=== PATIENT | male | born 1965 | race Caucasian/White ===

== ENCOUNTER 2017-10-08 09:45 | Emergency (ER) | payer OTHER ==
[~2017-10-08] VITALS: Ht 165.1 cm; Wt 90.0 kg
[~2017-10-08 09:45] MED LIST: ACCOLATE10 MG PO; AMLODIPINE10 MG PO; AMOXICILLIN/CL875 MG PO; AUGMENTIN875TAB PO; CINNAMON500 MG PO; CLARITIN10 M1 PO; EQ ASPIRIN81 M1 PO; FLEXERIL PO; GLIMEPIRIDE2 MG PO; HYDROCO/APAP1 T12 OR; LANTUS100 UNIT/M SC; METFORMIN HCL1000 MG PO; METFORMIN500 M1 PO; MULTI VITAMN OR; NAPROSYN500 MG PO; NIACIN100 M1 PO; ZESTRIL10 M1 PO; ZINC25 MG PO
[2017-10-08] MEDS ORDERED: METFORMIN500 MG PO (10:14)
[2017-10-08] MEDS ORDERED: ADLT ASA LOW81 MG PO (10:15)
[2017-10-08] MEDS ORDERED: MULTIVITAMI1 PO (10:15)
[2017-10-08] MEDS ORDERED: TRADJENTA5 MG PO (10:16)
[2017-10-08] MEDS ORDERED: NAPROSYN500 MG PO (10:46)
[2017-10-08 10:55] VITALS: BP 155/84
== END 2017-10-08 10:55 | disposition home or self-care (01) | DRG 566 ==
LOC: ED 09:45
DX: M25.461 Effusion, right knee (principal); E11.9 Type 2 diabetes mellitus without complications; I10 Essential (primary) hypertension

== ENCOUNTER 2017-10-10 14:24 | Observation (INO) | payer OTHER ==
[~2017-10-10] VITALS: Ht 165.1 cm; Wt 80.0 kg
[~2017-10-10 14:24] MED LIST changes: +ADLT ASA LOW81 MG PO; +METFORMIN500 MG PO; +MULTIVITAMI1 PO; +TRADJENTA5 MG PO
--- NOTE | 2017-10-10 14:29 | NUR ---
WHEELCHAIR TO ER ROOM 2, TO BED
--- NOTE | 2017-10-10 14:33 | NUR ---
INTRODUCED SELF TO PT. REPORTS BEING SEEN IN ER 3 DAYS AGO FOR RIGHT KNEE PAIN. NO FRACTURES SEEN AT TIME. C/O RIGHT KNEE PAIN,SWELLING, AND REDNESS. RATES PAIN 8/10 WHEN BEARING WEIGHT. RIGHT KNEE NOTED TO BE RED WITH SWELLING TO TO PATELLAR REGION AND TO DISTAL THIGH AREA. PLAN OF CARE DISCUSSED WITH PT. TAHIRA CARPENTER.
--- NOTE | 2017-10-10 15:00 | NUR ---
#20 IV STARTED IN LAC WITH LABS AND BLOOD CX SPECIMENS OBTAINED. TOLERATED WELL.
--- NOTE | 2017-10-10 15:05 | NUR ---
COMPOSITION ROOFER BEDSIDE TO OBTAIN SECOND SET OF BLOOD CULTURES.
--- NOTE | 2017-10-10 15:16 | NUR ---
IV VANCOMYCIN INITIATED TO LAC. INFUSING WITHOUT DIFFICULTY. NO REDNESS OR SWELLING NOTED TO AREA. PT PLACED ON PENCIL SORTER. BP 180/78 HR 110 R 18. PILLOW PLACED UNDER RIGHT KNEE. INFORMED OF WAIT TIME FOR RESULTS OF LAB AND XRAYS. VERBALIZED UNDERSTANDING. CALL LIGHT GIVEN.
--- NOTE | 2017-10-10 15:18 | NUR ---
DR DOLAN NOTIFIED OF BP 196/[address] ORDER FOR ANTIHYPERTENSIVE.
[2017-10-10 15:23] LABS: HEMATOCRIT 38.8 % (39.0-50.0); HEMOGLOBIN 13.3 g/dl (14.0-18.0); IMMATURE GRANULOCYTES 0.4 % (0.0-5.0); MEAN CELL VOLUME 83.4 fL CALC (80.0-100.0); MEAN CORPUSCULAR HGB 28.6 pG CALC (26.0-32.0); MEAN CORPUSCULAR HGB CONC 34.3 g/L CALC (32.0-36.0); NEUT# 13.2 thou/uL (1.82-7.42); RED BLOOD COUNT 4.65 mill/uL (4.70-6.10); RED CELL DISTRI WIDTH 12.4 % (11.5-15.5)
[2017-10-10 15:34] LABS: ALBUMIN 3.8 g/dL (3.2-5.0); ALKALINE PHOSPHATASE 137 u/l (38-126); ANION GAP 17 (6-22 (CALC)); BILIRUBIN, TOTAL 0.7 mg/dL (0.0-1.4); BUN 16 mg/dL (9-20); BUN/CREATININE RATIO 24 (12-20 (CALC)); CARBON DIOXIDE 24 mmol/l (22-30); CHLORIDE 101 mmol/l (95-108); CREATININE 0.7 mg/dL (0.7-1.3); GFR > 60 ML/MIN (>=60 (CALC)); GFR FOR AFR.AMER. > 60 ML/MIN (>=60 (CALC)); POTASSIUM 4.4 mmol/l (3.5-5.1); SGOT/AST 18 u/l (17-59); SGPT/ALT 45 u/l (21-72); SODIUM 137 mmol/l (137-146); TOTAL PROTEIN 6.7 g/dL (6.3-8.2)
--- NOTE | 2017-10-10 15:50 | NUR ---
PT MEDICATED WITH CLONIDINE 0.1 MG PO FOR BP OF 195/94 HR 109. TOLERATED MEDICATION WELL. TORADOL 30 MG IV ADMINISTERED FOR RIGHT KNEE PAIN-- 5/10 ON PAIN SCALE. MEDICATION TOLERATED WELL. EXPLAINED TO PT OF CONTINUED WAIT TIME FOR LAB RESULTS. VERBALIZED UNDERSTANDING. DENIES ANY NEEDS AT THIS TIME. CALL LIGHT WITHIN REACH.
--- NOTE | 2017-10-10 16:03 | NUR ---
CALL RECIEVED FROM STRUCTURAL WORKER OF ELEVATED LACTIC ACID OF 2.0, DR DOLAN NOTIFIED AND MADE AWARE.
--- NOTE | 2017-10-10 16:30 | NUR ---
PT RESTING ON STRETCHER IN NAD. RESP EVEN AND UNLABORED. SKIN WARM AND DRY. KNEE ELEVATED WITH PILLOW UNDERNEATH. BP NOTED TO BE 183/86 HR 102. IV VANCOMYCIN CONTINUES TO INFUSE TO LAC. SITE PATENT AND FREE FROM REDNESS/SWELLING. VERBALIZES NO NEEDS AT THIS TIME. CALL CENTRE SUPERVISOR IN PLACE. CALL LIGHT WITHIN REACH.
[2017-10-10 16:55] VITALS: BP 174/88
--- NOTE | 2017-10-10 17:11 | NUR ---
REPEAT ACCUCHECK OBTAINED---259. DR DOLAN NOTIFIED. NO NEW ORDERS RECEIVED.
--- NOTE | 2017-10-10 17:34 | NUR ---
PT RESTING ON STRETCHER IN NAD. RESP EVEN AND UNLABORED. NORMAL SALINE CONTINUES TO INFUSE TO LAC WITHOUT DIFFICULTY. SITE FREE FROM REDNESS/SWELLING/WARMTH. VERBALIZES NO NEEDS AT THIS TIME. LAVATORY ATTENDANT IN PLACE. CALL LIGHT WITHINR EACH.
--- NOTE | 2017-10-10 17:55 | NUR ---
ATTEMPTED TO CALL REPORT TO [facility], RECEIVING NURSE BUSY AT MOMENT WILL CALL BACK.
--- NOTE | 2017-10-10 18:01 | NUR ---
VALVE TESTER BEDSIDE FOR REPEAT LACTIC ACID.
--- NOTE | 2017-10-10 18:04 | NUR ---
MEAL TRAY PROVIDED TO PT.
--- NOTE | 2017-10-10 18:29 | NUR ---
PT RESTING ON STRETCHER CONTINUING TO CONSUME MEAL TRAY. VERBALIZES NO NEEDS AT THIS TIME. AWAIITING TRANSPORT TO [facility].
--- NOTE | 2017-10-10 18:45 | NUR ---
REPORT GIVEN TO TIGIST PHILIP.
--- NOTE | 2017-10-10 18:50 | NUR ---
Admission Note Report Given to: TIGIST PHILIP Transported by: X Wheelchair Stretcher Transported with: X Nurse Transporter X Patent IV O2 Track Worker PT TRANSPORTED TO ROOM # 262 VIA WC IN STABLE CONDITION.
--- NOTE | 2017-10-10 18:55 | NUR ---
PT TO ROOM 261 VIA WHEELCHAIR. ACCOMPANIED BY ER STAFF. PT TRANSFERRED TO BED WITH MINIMAL ASSISTANCE. PT ORIENTED TO ROOM AND UNIT. CALL LIGHT IN REACH. WILL CONTINUE TO MONITOR
--- NOTE | 2017-10-10 19:30 | NUR ---
DR COVINGTON NOTIFIED FOR ORDERS. ORDERS RECEIVED.
--- NOTE | 2017-10-10 20:15 | NUR ---
PT SITTING UP IN BED WATCHING TV. PT IS ALERT AND ORIENTED X3. ADMISSION ASSESSMENT COMPLETED AT THIS TIME. IV PATENT X1. PLAN OF CARE REVIEWED. CALL LIGHT IN REACH WILL CONTINUE TO MONITOR
[2017-10-10 23:18] LABS: URINE BILIRUBIN - DIPSTICK NEGATIVE (NEGATIVE); URINE BLOOD DIPSTICK NEGATIVE (NEGATIVE); URINE COLOR YELLOW; URINE GLUCOSE - DIPSTICK >=1000 mg/dL (NEGATIVE); URINE KETONE TRACE mg/dL (NEGATIVE); URINE LEUK ESTERASE NEGATIVE (Negative); URINE NITRITE - DIPSTICK NEGATIVE (Negative); URINE PROTEIN - DIPSTICK TRACE mg/dL (NEG-TRACE); URINE SPECIFIC GRAVITY 1.025; URINE UROBILINOGEN - DIPSTICK 0.2 E.U./dL (0.2)
[2017-10-10 23:20] LABS: URINE CLARITY CLEAR
--- NOTE | 2017-10-11 00:10 | NUR ---
PT RESTING IN BED. TEMP 101.9. MEDICATED WITH TYLENOL PE MAY. WILL CONTINUE TO MONITOR
--- NOTE | 2017-10-11 03:59 | NUR ---
PT RESTING IN BED WITH EYES CLOSED. RESP ARE EVEN AND UNLABORED. NO DISTRESS NOTED. CALL LIGHT IN REACH. WILL CONTINUE TO MONITOR
[2017-10-11 04:26] VITALS: BP 147/85
[2017-10-11 05:05] LABS: HEMATOCRIT 33.1 % (39.0-50.0); HEMOGLOBIN 11.3 g/dl (14.0-18.0); MEAN CELL VOLUME 84.9 fL CALC (80.0-100.0); MEAN CORPUSCULAR HGB CONC 34.1 g/L CALC (32.0-36.0); RED BLOOD COUNT 3.9 mill/uL (4.70-6.10); RED CELL DISTRI WIDTH 12.6 % (11.5-15.5)
[2017-10-11 05:13] LABS: ANION GAP 13 (6-22 (CALC)); BUN 15 mg/dL (9-20); BUN/CREATININE RATIO 23 (12-20 (CALC)); CARBON DIOXIDE 25 mmol/l (22-30); CHLORIDE 106 mmol/l (95-108); CREATININE 0.7 mg/dL (0.7-1.3); GFR > 60 ML/MIN (>=60 (CALC)); GFR FOR AFR.AMER. > 60 ML/MIN (>=60 (CALC)); POTASSIUM 4.4 mmol/l (3.5-5.1); SODIUM 139 mmol/l (137-146)
--- NOTE | 2017-10-11 07:41 | NUR ---
Vancomycin consult Age: 52 years Weight: 80 kg Height: 165.1 cm Gender: Male SCR: 0.7 mg/dl Dosing weight: 68.9 kg IBW: 61.50 kg CRCL (ml/min): 106.2 Neal (hr-1): 0.093 Half-life (hrs): 7.45 Vd (liters): 56.00 (factor: 0.7 L/kg) Vancomycin 1000 mg Q8H to produce a predicted peak of 31 mcg/ml and a predicted trough of 17 mcg/ml based on (Population-based pharmacokinetic analysis).
[2017-10-11 07:50] VITALS: BP 182/89
--- NOTE | 2017-10-11 07:50 | NUR ---
RECEIVED PT IN SEMI FOWLERS POSITION, ALERT, BREATH SOUNDS ARE CLEAR, BILATERALLY, NO C/O SOB, HR IS REG, PULSES ARE STRONG X4, R LEG IS WARM TO THE TOUCH IV SITE IS FREE FROM REDNESS OR EDMEA. CONTINUE TO OBSERVE AND MONITOR.
[2017-10-11 12:00] VITALS: BP 165/50
--- NOTE | 2017-10-11 12:00 | NUR ---
PT IS RELAXING IN BED WITH NO DISTRESS NOTED, IV SITE IS FREE FROM REDNESS OR EDEMA
[2017-10-11 16:34] VITALS: BP 184/90
[2017-10-11 19:10] VITALS: BP 156/85
--- NOTE | 2017-10-11 19:20 | NUR ---
PT RESTING IN BED. PT DENIES PAIN. RESP EVEN AND UNLABORED. IV PATENT; NO REDNESS OR EDEMA NOTED. SAFETY PRECAUTIONS REINFORCED. FREQUENT ROUNDS MADE. CALL LIGHT WITHIN REACH.
--- NOTE | 2017-10-11 21:04 | NUR ---
PT RESTING IN BED. PT ALERT AND ORIENTED. RESP EVEN AND UNLABORED. LUNGS CLEAR BILAT. ABD SOFT, ACTIVE BOWEL SOUNDS. RIGHT PATELLA REDNESS, PT DENIES PAIN. PEDAL PULSES PALPATED BILAT. IV PATENT; NO REDNESS OR EDEMA NOTED. CALL LIGHT WITHIN REACH.
[2017-10-12] VITALS (8 sets, daily range): BP systolic 147–184; BP diastolic 83–93
--- NOTE | 2017-10-12 | NUR ---
PT WOKE UPON ENTRY, PT DENIES PAIN. NO DISTRESS NOTED. IV PATENT; NO REDNESS OR EDEMA NOTED. CALL LIGHT WITHIN REACH.
--- NOTE | 2017-10-12 03:56 | NUR ---
PT WOKE UPON ENTRY, ASSESSMENT UNCHANGED. PT DENIES PAIN. RESP EVEN AND UNLABORED. CALL LIGHT WITHIN REACH.
[2017-10-12 06:05] LABS: HEMATOCRIT 31.9 % (39.0-50.0); IMMATURE GRANULOCYTES 1.1 % (0.0-5.0); MEAN CELL VOLUME 83.5 fL CALC (80.0-100.0); MEAN CORPUSCULAR HGB 28.8 pG CALC (26.0-32.0); MEAN CORPUSCULAR HGB CONC 34.5 g/L CALC (32.0-36.0); NEUT# 12.34 thou/uL (1.82-7.42); RED BLOOD COUNT 3.82 mill/uL (4.70-6.10); RED CELL DISTRI WIDTH 12.4 % (11.5-15.5)
--- NOTE | 2017-10-12 07:21 | NUR ---
Vancomycin consult Vancomycin single level analysis: Current dose being given: 1000 mg Current dosing interval: 8 hrs Current infusion time (hrs): 2 Single level Trough Data: Trough level obtained: 8 mcg/ml Timing of trough - Number of hours before next dose: 0.5 Hrs Desired peak: 30 mcg/ml Desired trough: 15 mcg/ml Estimated PK Parameters: New rate constant (vitor): 0.156 hr-1 New half-life: 4.44 Hours New Vd from levels: 56.00 Liters (0.7 L/kg) Vancomycin 1250 mg Q8H Infuse over 2 hrs Expected Cpeak: 27 mcg/ml Expected Ctrough: 11 mcg/ml
--- NOTE | 2017-10-12 07:38 | NUR ---
PT RESTING IN BED, NO SIGNS OF DISTRESS NOTED, RESP EVEN AND UNLABORED. PT ALERT AND ORIENTED X3, NOTED REDNESS AND EDEMA LOCALIZED TO R KNEE. PT VOICES NO C/O PAIN AT THIS TIME. PT EATING BREAKFAST, DISCUSSED AM MEDS AND INSULIN. PT IN AGREEMENT. BP ELEVATED MEDICATED WITH PO MEDS THEN WILL RECHECK. CALL LIGHT IN REACH,CONTINUE TO MONITOR.
--- NOTE | 2017-10-12 15:00 | NUR ---
MD ORDERED 1X DOSE OF METOPROLOL, PROVIDED TEACHING OF MEDICATION AND SIDE EFFECTS. PT IN AGREEMENT TO TAKE MEDS. CALL LIGHT IN REACH,CONTINUE TO MONITOR.
--- NOTE | 2017-10-12 18:23 | NUR ---
PT RESTING IN BED, NOTIFIED OF ELEVATED BP. STAT EKG ORDERED. ATTEMPTED TO PULL APRESOLINE FROM [facility] BUT NONE AVAILABLE. WADER BOOT TOP ASSEMBLER NOTIFIED, ONCALL PHARMACIST CALLED, STATES MED IS ON NATIONAL BACK ORDER. NOTIFIED FOR ALTERNATE ORDERS. PT MEDICATED FOR TEMP OF 100.5. CALL LIGHT IN REACH,CONTINUE TO MONITOR.
--- NOTE | 2017-10-12 19:34 | NUR ---
PT MEDICATED W/LABATALOL FOR BP ORDERED. ASSISTED PT TO RESTROOM AND BACK TO BED. REPOSITIONED. COVERS OFF FOR TEMP, WILL REAVALUATE FOR EFFECTIVENESS OF TYLENOL. LUNG SOUNDS ARE CLEAR, ABD FIRM/DIST NON-TENDER WITH ACTIVE BOWEL SOUNDS. RIGHT KNEE RED W/2+EDEMA/1+ EDEMA TO LOWER LEG/FOOT RIGHT SIDE. PT LOCX4 AND AMBULATORY W/1X STANDBY ASSIST. DENIES ANY OTHER NEEDS AT THIS TIME.
--- NOTE | 2017-10-12 21:06 | NUR ---
PT MEDICATED PM MEDICATIONS PROVIDE. BP 1444/80,HR92 PT RESPONDING TO MEDICATIONS ADMINISTERED. TEMP 99.3 IN RESPONSE TO TYLENOL GIVEN. PT REQUESTED/PROVIDED SOMETHING TO ASSIST IN SLEEPING, REPORTS HE HASN'T SLEPT IN THREE DAYS. LIGHTS TURNED OFF, URINAL AT BEDSIDE AND CALL LIGHT IN REACH. PT RECEIVING PHONE CALL I'M LEAVING THE ROOM. DENIES ANY OTHER ASSISTANCE.
[2017-10-13] VITALS (8 sets, daily range): BP systolic 148–191; BP diastolic 84–93
--- NOTE | 2017-10-13 00:01 | NUR ---
PT IV FLUIDS WERE SOUNDING, PT MEDICATED ORDERS PROVIDE. PT SPILLED HIS WATER ON HIMSELF/ASSISTED INTO [place] G[place]. TEMP RECHECKED @98.3. PT HAS SOME AUDIBLE WHEEZING AT THIS TIME, O2SAT WITH O2NC ON @2L IS 98%. PT REPORTS THAT HE HAS SOME WHEEZING SPELLS AT HOME SOMETIMES, DENIES TAKING ALBUTERAL. WILL CONTINUE TO MONITOR.
--- NOTE | 2017-10-13 04:18 | NUR ---
PT MEDICATED FOR ELEVATED BP OF 191/92,HR 102.
--- NOTE | 2017-10-13 06:07 | NUR ---
PT MEDICATED FOR BP 188/102,HR105.
--- NOTE | 2017-10-13 07:32 | NUR ---
PT RESTING IN BED, NO SIGNS OF DISTRESS NOTED, RESP EVEN AND UNLABORED. NO SIGNS OF DISTRESS NOTED. DISCUSSED POC, REDNESS TO R KNEE CONTINUES AND HOT TO TOUCH. 02 2L NC, LUNG SOUNDS WHEEZES, ASSESSMENT COMPLETED, CALL LIGHT IN REACH,CONTINUE TO MONITOR.
--- NOTE | 2017-10-13 09:43 | NUR ---
PT WEIGHED 199.1 USING SAME BED SCALE USED WHEN ADMITTED. ADMISSION WEIGHT 185.1. INFORMED MD, ORDERS FOR LABATALOL FOR BP OF 170/91 HR 92, LASIX 40 IV, AND PRN NEB TX. DISCUSSED PLAN AND MEDICATIONS WITH PT, PT VERBALIZED UNDERSTANDING. RT CALLED TO BEDSIDE FOR NEB TX. CALL LIGHT IN REACH, URINAL AT BEDSIDE, CONTINUE TO MONITOR.
--- NOTE | 2017-10-13 13:50 | NUR ---
PT BP 151/87, PT VOICES NO NEEDS OR COMPLAINTS AT THIS TIME. CALL LIGHT IN REACH,CONTINUE TO MONITOR.
[2017-10-13 14:08] LABS: HEMATOCRIT 32.2 % (39.0-50.0); HEMOGLOBIN 11.2 g/dl (14.0-18.0); IMMATURE GRANULOCYTES 0.9 % (0.0-5.0); MEAN CELL VOLUME 83.4 fL CALC (80.0-100.0); MEAN CORPUSCULAR HGB CONC 34.8 g/L CALC (32.0-36.0); NEUT# 13.2 thou/uL (1.82-7.42); RED BLOOD COUNT 3.86 mill/uL (4.70-6.10); RED CELL DISTRI WIDTH 12.8 % (11.5-15.5)
[2017-10-13 14:48] LABS: ANION GAP 16 (6-22 (CALC)); BUN 14 mg/dL (9-20); BUN/CREATININE RATIO 15 (12-20 (CALC)); CARBON DIOXIDE 27 mmol/l (22-30); CHLORIDE 99 mmol/l (95-108); CREATININE 0.9 mg/dL (0.7-1.3); GFR > 60 ML/MIN (>=60 (CALC)); GFR FOR AFR.AMER. > 60 ML/MIN (>=60 (CALC)); SODIUM 138 mmol/l (137-146)
--- NOTE | 2017-10-13 17:30 | NUR ---
SPOKE WITH BOB AT [facility] TRAN[facility], LILLIAM DICK ACCEPTING. WILL RETURN CALL WITH ROOM NUMBER. CONSENT FOR TRANSFER SIGNED, FAMILY AT BEDSIDE DISCUSSED PLANS FOR TRANSFER.
--- NOTE | 2017-10-13 18:45 | NUR ---
BOB FROM [facility] CALLED WITH ROOM # [id number]
--- NOTE | 2017-10-13 18:51 | NUR ---
SPOKE WITH GABY AT [facility] TRANSPORT ETA 1 1/2 HRS, ONCOMING SHIFT NOTIFIED.
--- NOTE | 2017-10-13 21:20 | NUR ---
PT LEFT VIA [facility]. PT WAS IN STABLE CONDITION UPON LEAVING FLOOR. VANCO COMPLETED JUST PRIOR TO LEAVING.
== END 2017-10-13 21:15 | disposition short-term general hospital (02) | DRG 603 ==
LOC: ED 14:24 → ED-I 15:54 → ED 17:15 → MS2 17:16
PROVIDERS: Emergency Medicine; General Practice; Internal Medicine; ADMIT Internal Medicine; ATTEND Internal Medicine
DX: L03.115 Cellulitis of right lower limb (principal); E11.65 Type 2 diabetes mellitus with hyperglycemia; I10 Essential (primary) hypertension; E66.01 Morbid (severe) obesity due to excess calories; R00.0 Tachycardia, unspecified; Z68.29 Body mass index [BMI] 29.0-29.9, adult
CPT/HCPCS: G0378; J0692; J3370

== ENCOUNTER 2020-01-23 18:22 | Emergency (ER) | payer OTHER ==
[~2020-01-23] VITALS: Ht 165.1 cm; Wt 84.1 kg
[2020-01-23 21:10] VITALS: BP 164/74
[2020-01-24] MEDS ORDERED: INSULIN 70/30 (08:25)
[2020-01-24] MEDS ORDERED: BYDUREON2 MG IM (08:26)
--- NOTE | 2020-01-26 09:32 | NUR ---
Notified patient of positive Covid results. Patient denies dyspnea or fever. Advised patient to quarantine until contacted by the [facility] with further instructions. Advised patient to return to the ED with any difficulty breathing or SOB. Patient verbalized understanding.
== END 2020-01-23 21:10 | disposition home or self-care (01) | DRG 179 ==
LOC: ED 18:22
DX: U07.1 COVID-19 (principal); R43.8 Other disturbances of smell and taste; E11.9 Type 2 diabetes mellitus without complications; I10 Essential (primary) hypertension; Z79.4 Long term (current) use of insulin

== ENCOUNTER 2020-11-15 02:44 | Inpatient (IN) | payer OTHER ==
[~2020-11-15] VITALS: Ht 165.1 cm; Wt 86.0 kg
[~2020-11-15 02:44] MED LIST changes: +BYDUREON2 MG IM; +INSULIN 70/30
--- NOTE | 2020-11-15 02:44 | NUR ---
BY EMS TO ROOM
--- NOTE | 2020-11-15 02:52 | NUR ---
EKG CONFIRMS A-FIB/RVR
--- NOTE | 2020-11-15 03:03 | NUR ---
CARDIZEM DRIP AND BOLUS STARTED
--- NOTE | 2020-11-15 04:00 | NUR ---
NO C/O. HR STARTING TO SLOW.
--- NOTE | 2020-11-15 05:00 | NUR ---
STOOD TO VOID WITHOUT PROBLEM.
[2020-11-15 06:24] LABS: IMMATURE GRANULOCYTES 0.2 % (0.0-5.0); MEAN CORPUSCULAR HGB 29.1 pG CALC (26.0-32.0); MEAN CORPUSCULAR HGB CONC 32.1 g/dL CAL (32.0-36.0); NEUT# 9.29 thou/uL (1.82-7.42); RED BLOOD COUNT 4.67 mill/uL (4.70-6.10); RED CELL DISTRI WIDTH 13.4 % (11.5-15.5)
[2020-11-15 06:26] LABS: ALBUMIN 4.2 g/dL (3.2-5.0); ALKALINE PHOSPHATASE 95 u/l (38-126); ANION GAP 14 (6-22 (CALC)); BILIRUBIN, TOTAL 0.3 mg/dL (0.0-1.4); BUN 14 mg/dL (9-20); BUN/CREATININE RATIO 17 (12-20 (CALC)); CARBON DIOXIDE 23 mmol/l (22-30); CHLORIDE 106 mmol/l (95-108); CREATININE 0.8 mg/dL (0.7-1.3); GFR > 60 ML/MIN (>=60 (CALC)); GFR FOR AFR.AMER. > 60 ML/MIN (>=60 (CALC)); MAGNESIUM 1.7 mg/dL (1.6-2.3); POTASSIUM 4.2 mmol/l (3.5-5.1); SGOT/AST 30 u/l (17-59); SODIUM 139 mmol/l (137-146); TOTAL PROTEIN 7.2 g/dL (6.3-8.2)
[2020-11-15 06:27] LABS: ACT PARTIAL THROMBO TIME 22.4 SECONDS (20.0-32.5); D-DIMER 0.47 mg/L (0.19-0.60); INTERNATIONAL NORMALIZED RATIO 0.9 RATIO (0.7-1.3); PROTHROMBIN TIME 9.9 SECONDS (9.0-12.5)
[2020-11-15 06:33] LABS: HEMATOCRIT 42.4 % (39.0-50.0); HEMOGLOBIN 13.6 g/dl (14.0-18.0); MEAN CELL VOLUME 90.8 fL CALC (80.0-100.0)
[2020-11-15 06:52] LABS: LIPASE 180 u/l (23-300)
[2020-11-15 08:00] VITALS: BP 132/74
--- NOTE | 2020-11-15 09:30 | NUR ---
Pt to side of bed and set up for breakfast. Urinal provided per pt request. No distress noted. Bed in lowest position. Call garner within reach. Denies any other needs at this time.
--- NOTE | 2020-11-15 09:45 | NUR ---
Dr Ag and CHASE Maldonado at bedside
--- NOTE | 2020-11-15 09:45 | NUR ---
CHASE GUTIERRES NOTIFIED OF CARDIZEM GTT COMPLETE AND INQUIRED IF MEDICATION TO BE CONTINUED. HE ADVISED HE WOULD EVALUATE PT AND ORDER IF NECESSARY. PTS PRIMARY NURSE NOTIFIED
--- NOTE | 2020-11-15 09:57 | NUR ---
PT TO RADIOLOGY VIA W/C IN STABLE CONDITION.
--- NOTE | 2020-11-15 10:15 | NUR ---
PT RETURNED TO ROOM # 6 FROM RADIOLOGY VIA W/C. NO DISTRESS NOTED.
--- NOTE | 2020-11-15 12:54 | NUR ---
Reassessment of patient completed. No distress noted.
[2020-11-15] MEDS ORDERED: ALLERGY RE50 MCG/ACT NAB (13:40)
[2020-11-15] MEDS ORDERED: TELMISARTAN80 MG PO (13:41)
[2020-11-15] MEDS ORDERED: HYDRALAZINE10 MG PO (13:41)
[2020-11-15] MEDS ORDERED: LIPITOR20 M1 PO (13:42)
[2020-11-15] MEDS ORDERED: NOVOLIN 70/30 F1 INJ SC ×2 (13:43)
--- NOTE | 2020-11-15 15:33 | NUR ---
Reassessment of patient completed. No distress noted.
--- NOTE | 2020-11-15 17:00 | NUR ---
Reassessment of patient completed. No distress noted.
--- NOTE | 2020-11-15 21:43 | NUR ---
Reassessment of patient completed. No distress noted.
--- NOTE | 2020-11-15 21:56 | NUR ---
Reassessment of patient completed. No distress noted. PLACED A ANOTHER BAG OF CARDIZEM DRIP
--- NOTE | 2020-11-15 22:25 | NUR ---
RESTING QUIETLY. NAD.
--- NOTE | 2020-11-15 22:42 | NUR ---
CARDIZEM GTT CONTINUES AT 15 NG/HR
--- NOTE | 2020-11-15 23:21 | NUR ---
PLACED IN HOSPITAL BED
[2020-11-16] VITALS (11 sets, daily range): BP systolic 114–155; BP diastolic 72–94
--- NOTE | 2020-11-16 02:39 | NUR ---
RESTING QUIETLY NO CHANGE NOTED.
[2020-11-16 04:29] LABS: HEMATOCRIT 38.8 % (39.0-50.0); HEMOGLOBIN 12.9 g/dl (14.0-18.0); IMMATURE GRANULOCYTES 0.2 % (0.0-5.0); MEAN CORPUSCULAR HGB 29.6 pG CALC (26.0-32.0); MEAN CORPUSCULAR HGB CONC 33.2 g/dL CAL (32.0-36.0); NEUT# 6.06 thou/uL (1.82-7.42); RED BLOOD COUNT 4.36 mill/uL (4.70-6.10); RED CELL DISTRI WIDTH 13.2 % (11.5-15.5)
[2020-11-16 04:42] LABS: ALBUMIN 3.4 g/dL (3.2-5.0); ALKALINE PHOSPHATASE 87 u/l (38-126); ANION GAP 11 (6-22 (CALC)); BUN 12 mg/dL (9-20); BUN/CREATININE RATIO 18 (12-20 (CALC)); CARBON DIOXIDE 25 mmol/l (22-30); CHLORIDE 106 mmol/l (95-108); CREATININE 0.7 mg/dL (0.7-1.3); GFR > 60 ML/MIN (>=60 (CALC)); GFR FOR AFR.AMER. > 60 ML/MIN (>=60 (CALC)); POTASSIUM 4.2 mmol/l (3.5-5.1); SGOT/AST 21 u/l (17-59); SODIUM 137 mmol/l (137-146); TOTAL PROTEIN 5.9 g/dL (6.3-8.2)
[2020-11-16 04:43] LABS: BILIRUBIN, TOTAL 0.6 mg/dL (0.0-1.4)
--- NOTE | 2020-11-16 05:21 | NUR ---
NO SIGNIFICANT CHANGES.
--- NOTE | 2020-11-16 05:34 | NUR ---
UOP 700 CC CLEAR YELLOW
--- NOTE | 2020-11-16 06:21 | NUR ---
RESTING QUIETLY. NAD.
--- NOTE | 2020-11-16 07:18 | NUR ---
RECEIVED BEDSIDE REPORT FROM ANDREA ESCOTO.
--- NOTE | 2020-11-16 10:22 | NUR ---
DR ROPER AT BEDSIDE TO DISCUSS RESULTS AND POC.
--- NOTE | 2020-11-16 10:30 | NUR ---
CARDIZIEM GTT STOPPED AT THIS TIME PER MD ORDER.
--- NOTE | 2020-11-16 18:19 | NUR ---
IN HIGH FOWLERS EATING MEAL. DENIES NEEDS AT THIS TIME. CALL LIGHT WITHIN REACH. IV INFUSING WITHOUT DIFFICULTY, SITE APPEARS HEALTHY.
--- NOTE | 2020-11-16 20:19 | NUR ---
Reassessment of patient completed. No distress noted.
--- NOTE | 2020-11-16 21:32 | NUR ---
PT BEING MOVED FROM ROOM 6 TO ROOM 8 FOR ER ICU HOLD. PT DID NOT GET MUCH REST LAST NIGHT DO TO ROOM LOCATION.
--- NOTE | 2020-11-16 22:23 | NUR ---
RECIEVED REPORT FROM TIGIST MARKS. ASSUMED CARE OF PATIENT. HOB ELEVATED TO 30 DEGREES FOR COMFORT. CALL LIGHT WITHIN REACH, PT INSTRUCTED TO CALL FOR ASSIST NEEDED.
--- NOTE | 2020-11-16 23:25 | NUR ---
Reassessment of patient completed. No distress noted. BLOOD PRESSURE CHECK. PT CURRENTLY IN A. FIB.
--- NOTE | 2020-11-17 00:39 | NUR ---
Reassessment of patient completed. No distress noted.
--- NOTE | 2020-11-17 01:00 | NUR ---
Reassessment of patient completed. No distress noted. IV LINE UNTANGLED. PT RESTING QUIETLY.
--- NOTE | 2020-11-17 01:15 | NUR ---
PT RESTING. REPORT RECEIVED. PT RESTING IN ROOM 8. LIGHTS DIMMED. WATCHING T.V. IV PATENT. CM A-FIB...RATE 97
--- NOTE | 2020-11-17 03:00 | NUR ---
PT RESTING. NAD. VSS.
--- NOTE | 2020-11-17 04:30 | NUR ---
PT RESTING. NAD.
--- NOTE | 2020-11-17 06:00 | NUR ---
PT RESTING. LOVONOX SHOT GIVEN.
[2020-11-17 07:00] VITALS: BP 179/101
--- NOTE | 2020-11-17 07:00 | NUR ---
RECEIVED BEDSIDE REPORT FROM CELESTE ESCOTO. PT RESTING IN BED TALKING ON PHONE. PO FLUIDS OFFERED. DENIES C/O AT THIS TIME. CALL LIGHT WITHIN REACH.
--- NOTE | 2020-11-17 07:00 | NUR ---
REPORT TO ADRIANNE MIRANDA. NAD.
[2020-11-17 08:12] VITALS: BP 169/89
--- NOTE | 2020-11-17 08:54 | NUR ---
LAB AT BEDSIDE FOR AM LABS
[2020-11-17 09:43] LABS: HEMATOCRIT 41.2 % (39.0-50.0); HEMOGLOBIN 13.7 g/dl (14.0-18.0); IMMATURE GRANULOCYTES 0.2 % (0.0-5.0); MEAN CELL VOLUME 88.2 fL CALC (80.0-100.0); MEAN CORPUSCULAR HGB 29.3 pG CALC (26.0-32.0); MEAN CORPUSCULAR HGB CONC 33.3 g/dL CAL (32.0-36.0); NEUT# 4.15 thou/uL (1.82-7.42); RED BLOOD COUNT 4.67 mill/uL (4.70-6.10); RED CELL DISTRI WIDTH 13.2 % (11.5-15.5)
[2020-11-17 09:55] LABS: ALBUMIN 3.7 g/dL (3.2-5.0); ALKALINE PHOSPHATASE 97 u/l (38-126); ANION GAP 11 (6-22 (CALC)); BILIRUBIN, TOTAL 0.5 mg/dL (0.0-1.4); BUN 13 mg/dL (9-20); BUN/CREATININE RATIO 18 (12-20 (CALC)); CARBON DIOXIDE 24 mmol/l (22-30); CHLORIDE 105 mmol/l (95-108); CREATININE 0.8 mg/dL (0.7-1.3); GFR > 60 ML/MIN (>=60 (CALC)); GFR FOR AFR.AMER. > 60 ML/MIN (>=60 (CALC)); POTASSIUM 4.2 mmol/l (3.5-5.1); SGOT/AST 24 u/l (17-59); SODIUM 136 mmol/l (137-146); TOTAL PROTEIN 6.3 g/dL (6.3-8.2)
--- NOTE | 2020-11-17 10:15 | NUR ---
REPORT GIVEN TO GENARO ESCOTO
--- NOTE | 2020-11-17 10:30 | NUR ---
DR ROPER AT BEDSIDE TO DISCUSS RESULTS AND POC.
--- NOTE | 2020-11-17 22:38 | NUR ---
Admission Note Report Given to: TIGIST HOOD Transported by: Wheelchair X Stretcher Transported with: X Nurse Transporter X Patent IV O2 X Environmental Services Coordinator Location: ICU X MS[facility]
[2020-11-18] VITALS (16 sets, daily range): BP systolic 117–174; BP diastolic 77–107
--- NOTE | 2020-11-18 00:25 | NUR ---
CALL SHANON FROM ER, PATIENT IN A FIB SUSTAINING 130'S, STAT EKG ORDERED, PATIENT ASYMPTOMATIC.
--- NOTE | 2020-11-18 02:39 | NUR ---
ORDERS RECIEVED AND GIVEN, NO CHANGE IN HR.
[2020-11-18 05:32] LABS: HEMATOCRIT 41.9 % (39.0-50.0); HEMOGLOBIN 13.6 g/dl (14.0-18.0); MEAN CELL VOLUME 89.7 fL CALC (80.0-100.0); MEAN CORPUSCULAR HGB 29.1 pG CALC (26.0-32.0); MEAN CORPUSCULAR HGB CONC 32.5 g/dL CAL (32.0-36.0); RED BLOOD COUNT 4.67 mill/uL (4.70-6.10); RED CELL DISTRI WIDTH 13.1 % (11.5-15.5)
--- NOTE | 2020-11-18 05:48 | NUR ---
ORDERS RECEIVED, ADMINISTERED. PATIENT STILL SUSTAINING HR, NEW ORDERS RECIEVED.
[2020-11-18 05:51] LABS: ANION GAP 11 (6-22 (CALC)); BUN 16 mg/dL (9-20); BUN/CREATININE RATIO 19 (12-20 (CALC)); CARBON DIOXIDE 26 mmol/l (22-30); CHLORIDE 106 mmol/l (95-108); CREATININE 0.8 mg/dL (0.7-1.3); GFR > 60 ML/MIN (>=60 (CALC)); GFR FOR AFR.AMER. > 60 ML/MIN (>=60 (CALC)); POTASSIUM 4.6 mmol/l (3.5-5.1); SODIUM 139 mmol/l (137-146)
--- NOTE | 2020-11-18 08:00 | NUR ---
BEDSIDE REPORT RECEIVED. PT SITTING UP IN BED EATING BREAKFAST AT THIS TIME. ASSESSMENT COMPLETED. PT EXPECTED TO BE TRANSFERRED, D/T HEART RHYTHM AND NEED FOR ADVANCED CARE. PT IS ASYMPTOMATOIC AND STATES HE FEELS FINE. SN EXPLAINED NEED FOR TRANSFER, PT AGREED. WILL CONTINUE TO MONITOR.
--- NOTE | 2020-11-18 09:50 | NUR ---
PT TAKEN TO ER PER JESU ESCOTO VIA WC. REPORT GIVEN TO CEDRICK IN ER.
--- NOTE | 2020-11-18 10:00 | NUR ---
PATIENT RECEIVED TO ER 15. BEDSIDE REPORT RECIVED FROM Torri BLEVINS RN. CARE ASSUMED AT THIS TIME. PATIENT IN AFIB WITH RVR RATE 120-160. PATINET IS ALERT AND ORIENTED X3. ORIENTED PATIENT TO ROOM AND UNIT. CALL LIGHT IN REACH WILL CONTINUE TO MONITOR.
--- NOTE | 2020-11-18 10:30 | NUR ---
DR ROPER AND STEPH GUTIERRES APRN AT BEDSIDE NEW ORDERS RECEIVED AT THIS TIME
--- NOTE | 2020-11-18 12:30 | NUR ---
PATEINT SET UP FOR NOON MEAL AT THIS TIME.
--- NOTE | 2020-11-18 12:50 | NUR ---
DR ROPER PHONED WITH [facility] FOR ELEVATED HEART RATE
--- NOTE | 2020-11-18 13:42 | NUR ---
DR ROPER AT BEDSIDE AT THIS TIME.
--- NOTE | 2020-11-18 16:00 | NUR ---
PATIENT RESTING IN BED. REMAINS AFIB ON MONITOR. NO DISTRESS NOTED. CALL LIGHT IN REACH. WILL CONTINUE TO MONITOR.
--- NOTE | 2020-11-18 17:01 | NUR ---
KRISTIN STATES THAT HE IS DIABETIC AND IS CONCENRED THAT HE HAS NOT BEEN RECEIVEING HOME MEDS. DR ROPER NOTIFIED. NEW ORDERS RECEIVED
[2020-11-19] VITALS (14 sets, daily range): BP systolic 123–173; BP diastolic 73–103
--- NOTE | 2020-11-19 02:05 | NUR ---
Reassessment of patient completed. No distress noted.
[2020-11-19 05:58] LABS: ANION GAP 11 (6-22 (CALC)); BUN 14 mg/dL (9-20); BUN/CREATININE RATIO 19 (12-20 (CALC)); CARBON DIOXIDE 30 mmol/l (22-30); CHLORIDE 102 mmol/l (95-108); CREATININE 0.7 mg/dL (0.7-1.3); GFR > 60 ML/MIN (>=60 (CALC)); GFR FOR AFR.AMER. > 60 ML/MIN (>=60 (CALC)); SODIUM 138 mmol/l (137-146)
[2020-11-19 05:59] LABS: HEMATOCRIT 42.2 % (39.0-50.0); HEMOGLOBIN 13.8 g/dl (14.0-18.0); MEAN CELL VOLUME 89.6 fL CALC (80.0-100.0); MEAN CORPUSCULAR HGB 29.3 pG CALC (26.0-32.0); MEAN CORPUSCULAR HGB CONC 32.7 g/dL CAL (32.0-36.0); RED BLOOD COUNT 4.71 mill/uL (4.70-6.10); RED CELL DISTRI WIDTH 13.1 % (11.5-15.5)
--- NOTE | 2020-11-19 07:12 | NUR ---
AFIB RVR NOTED WITH HR UP TO 150. CARDIZEM DRIP PER PRN ORDER STARTED.
--- NOTE | 2020-11-19 12:59 | NUR ---
AMIODARONE DISCONTINUED AT THIS TIME
--- NOTE | 2020-11-19 19:03 | NUR ---
REPORT TO MALCOLM ESCOTO
--- NOTE | 2020-11-19 19:15 | NUR ---
PT OOB TO CHAIR. NO DISTRESS. REMAINS IN ER 15. MONITORING VS CLOSELY. CARDIZEM DRIP REMAINS AT 5MG.
--- NOTE | 2020-11-19 23:05 | NUR ---
PT TOLERATED INCREASED LOPRESSOR DOSE WELL. HR HAS REMAINED LESS THAN 100 BPM WITH CARDIZEM DRIP IN USE. CARDIZEM WEANED TO 2.5MG/H AT 2200 HR WAS 70 -100 BPM. CARDIZEM STOPPED HR REMAINS 80 TO 100 BPM. WILL MONITOR CLOSELY.
[2020-11-20] VITALS (20 sets, daily range): BP systolic 105–170; BP diastolic 70–100
[2020-11-20 05:36] LABS: URINE BILIRUBIN - DIPSTICK NEGATIVE (NEGATIVE); URINE BLOOD DIPSTICK NEGATIVE (NEGATIVE); URINE COLOR YELLOW; URINE GLUCOSE - DIPSTICK NEGATIVE (NEGATIVE); URINE KETONE NEGATIVE (NEGATIVE); URINE LEUK ESTERASE NEGATIVE (NEGATIVE); URINE PROTEIN - DIPSTICK NEGATIVE (NEG-TRACE); URINE UROBILINOGEN - DIPSTICK 0.2 E.U./dL (0.2)
[2020-11-20 05:37] LABS: URINE NITRITE - DIPSTICK NEGATIVE (Negative)
[2020-11-20 05:49] LABS: ANION GAP 11 (6-22 (CALC)); BUN 20 mg/dL (9-20); BUN/CREATININE RATIO 23 (12-20 (CALC)); CARBON DIOXIDE 25 mmol/l (22-30); CHLORIDE 104 mmol/l (95-108); CREATININE 0.9 mg/dL (0.7-1.3); GFR > 60 ML/MIN (>=60 (CALC)); GFR FOR AFR.AMER. > 60 ML/MIN (>=60 (CALC)); HEMATOCRIT 38.5 % (39.0-50.0); HEMOGLOBIN 13.1 g/dl (14.0-18.0); MAGNESIUM 1.9 mg/dL (1.6-2.3); MEAN CELL VOLUME 87.1 fL CALC (80.0-100.0); MEAN CORPUSCULAR HGB 29.6 pG CALC (26.0-32.0); NEUT# 4.1 thou/uL (1.82-7.42); POTASSIUM 4.1 mmol/l (3.5-5.1); RED BLOOD COUNT 4.42 mill/uL (4.70-6.10); RED CELL DISTRI WIDTH 12.9 % (11.5-15.5); SODIUM 136 mmol/l (137-146)
--- NOTE | 2020-11-20 05:51 | NUR ---
HR HAS GRADUALLY INCREASED WITH HR UP TO 140 WITH MOVEMENT. HR NOT SUSTAINED AT RAPID RATE. HR REMAINS 90 TO 120 AT REST. WILL CONTINUE TO MONITOR AND RESUME PRN CARDIZEM IF HR BECOMES SUSTAINED AT RAPID RATE. PT DENIES PALPITATIONS OR DIZZINESS. BREATH SOUNDS REMAINS CLEAR. PERRLA 5MM. NO DISTRESS NOTED.
--- NOTE | 2020-11-20 06:33 | NUR ---
CARDIZEM RESUMED AT 10MG/HR. HR HAS GRADUALLY INCREASED THROUGHOUT SHIFT. HR HAS INCREASED UP TO 160 BPM. MAINLY 110 -135 FOR PAST 30 MIN. PT ASYMPTOMATIC. WILL CONTINUE TO MONITOR.
--- NOTE | 2020-11-20 07:00 | NUR ---
PATIENT REPORT FROM TIGIST FOWLER. PATIENT RESTING IN STRETCHER IN NAD. HE C/O FEELING DEPRESSED HE HAS BEEN HERE FOR 6 DAYS AND FEELING STUCK IN THIS ROOM. PATIENT DENIES ANY THOUGHTS OF SUICIDE OR HURTING HIMSELF. MONITOR SHOWING AFIB AT A RATE OF 110-125. CARDIAZEM INFUSING AT A RATE OF 10 MG/HR TO THE LEFT AC. HE DENIES ANY PAIN OR SOB. PATIENT UP TO BEDSIDE CHAIR AND AWAITING MEAL TRAY.
--- NOTE | 2020-11-20 08:00 | NUR ---
PATIENT IN BEDSIDE CHAIR AT THIS TIME. HE DENIES ANY NEEDS. CALL BORJAS WITHIN REACH.
--- NOTE | 2020-11-20 09:00 | NUR ---
DR العلي AT BEDSIDE. HE WILL BE MAKING CHANGES TO PO METOPROLOL.
--- NOTE | 2020-11-20 09:58 | NUR ---
PATIENT CARDIAZEM DRIP DECREASED TO 5MG/HR. HEART RATE 90-110.
--- NOTE | 2020-11-20 11:00 | NUR ---
PATIENT RESTING IN STRETCHER IN NAD AND DENIES ANY NEEDS. CALL BORJAS WITHIN REACH.
--- NOTE | 2020-11-20 12:00 | NUR ---
PATIENT RESTING IN STRETCHER IN NAD AND DENIES ANY NEEDS. CARDIZEM DRIP DECREASED TO 2.5 MLS PER HOUR. HEART RATE 80-105 AFIB.
--- NOTE | 2020-11-20 14:00 | NUR ---
PATIENT UP TO BATHROOM WITH A STEADY GAIT. DENIES ANY DIZZINESS OR PAIN.
--- NOTE | 2020-11-20 15:45 | NUR ---
CARDIZEM DRIP STOPPED AT THIS TIME. PATIENT HEART RATE SUSTAINING 80-100.
--- NOTE | 2020-11-20 17:45 | NUR ---
PATIENT HEART RATE TRENDING BACK UP 100-120'S AFIB.
--- NOTE | 2020-11-20 18:55 | NUR ---
REPORT TO TIGIST CRAWFORD.
--- NOTE | 2020-11-20 19:16 | NUR ---
RECIEVED REPORT FROM RUPESH ESCOTO. ASSUMED CARE OF PT.
--- NOTE | 2020-11-20 22:24 | NUR ---
Reassessment of patient completed. No distress noted. LIGHTS OFF, PT APPEARS TO BE RESTING, RESPIRATIONS EVEN, UNLABORED. NO NEEDS AT THIS TIME.
--- NOTE | 2020-11-21 00:50 | NUR ---
Reassessment of patient completed. No distress noted. Pt leads were misplaced. Rearranged and replaced. Pulse ox placed on left earlobe.
--- NOTE | 2020-11-21 05:19 | NUR ---
Reassessment of patient completed. No distress noted. RESPIRATIONS EVEN, UNLABORED, PT WAKES EASILY FOR BP CHECK.
--- NOTE | 2020-11-21 06:04 | NUR ---
Reassessment of patient completed. No distress noted. LAB HERE FOR LAB DRAW.
[2020-11-21 06:19] LABS: HEMATOCRIT 39.3 % (39.0-50.0); HEMOGLOBIN 13.3 g/dl (14.0-18.0); IMMATURE GRANULOCYTES 0.3 % (0.0-5.0); MEAN CELL VOLUME 87.9 fL CALC (80.0-100.0); MEAN CORPUSCULAR HGB 29.8 pG CALC (26.0-32.0); MEAN CORPUSCULAR HGB CONC 33.8 g/dL CAL (32.0-36.0); NEUT# 4.15 thou/uL (1.82-7.42); RED BLOOD COUNT 4.47 mill/uL (4.70-6.10); RED CELL DISTRI WIDTH 13.2 % (11.5-15.5)
[2020-11-21 06:49] LABS: ANION GAP 12 (6-22 (CALC)); BUN 16 mg/dL (9-20); BUN/CREATININE RATIO 23 (12-20 (CALC)); CARBON DIOXIDE 24 mmol/l (22-30); CHLORIDE 104 mmol/l (95-108); CREATININE 0.7 mg/dL (0.7-1.3); GFR > 60 ML/MIN (>=60 (CALC)); GFR FOR AFR.AMER. > 60 ML/MIN (>=60 (CALC)); MAGNESIUM 1.8 mg/dL (1.6-2.3); POTASSIUM 4.1 mmol/l (3.5-5.1); SODIUM 136 mmol/l (137-146)
--- NOTE | 2020-11-21 06:58 | NUR ---
REPORT RECEIVED FROM TIGIST LARA
--- NOTE | 2020-11-21 08:30 | NUR ---
PT UP TO BEDSIDE CHAIR FOR BREAKFAST, VITALS STABLE ON MONITOR. BREAKFAST PROVIDED. NO COMPLAINTS OR CONCERNS VOICED AT THIS TIME. PT REPORTS NEED FOR BOWEL MOVEMENT. STEADY GAIT TO BATHROOM. CALL LIGHT WITHIN REACH AND PERSONAL ITEMS REMAIN WITHIN REACH AT BEDSIDE.
[2020-11-21 09:00] VITALS: BP 146/97
[2020-11-21 11:15] LABS: TSH, 3RD GENERATION 3.97 uIU/mL (0.47 - 4.68)
--- NOTE | 2020-11-21 11:15 | NUR ---
PT RESTING, ACCUCHECK COMPLETED, INSLUIN GIVEN, NO OTHER CHANGES.
--- NOTE | 2020-11-21 11:35 | NUR ---
DR RAHMAN AT BEDSIDE TO EXAMINE PT
[2020-11-21 13:15] VITALS: BP 141/84
--- NOTE | 2020-11-21 13:16 | NUR ---
PT RESTING IN BED. NO CHANGES. VITALS UPDATED.
--- NOTE | 2020-11-21 14:58 | NUR ---
HEALTH INSPECTOR AT BEDSIDE DISCUSSING PLAN OF CARE. MEDICATED ORDERED. NO CONCERNS VOICED AT THIS TIME. WILL CONTINUE TO MONITOR.
--- NOTE | 2020-11-21 17:00 | NUR ---
URINAL EMPTIED 1000CC, NO CONCERNS VOICED. VITALS REMAIN STABLE. BED IN LOW POSITION. PERSONAL ITEMS WITHIN REACH.
--- NOTE | 2020-11-21 21:43 | NUR ---
PT IS W/P/D A FIB RATE VARIABLE 100-128,NO CP NO SOB PT SITS UP ON SIDE OF BED TO VOID 400CC YELLOW URINE.PO MEDS WITH WATER
--- NOTE | 2020-11-22 00:50 | NUR ---
W/P/D SKIN A FIB RHYTHM.PT IS ASLEEP AND IN NO APPARENT DISCOMFORT
--- NOTE | 2020-11-22 04:33 | NUR ---
W/P;D SKIN A/O X3 PT HAS VOIDED 300CC YELLOW URINE DENIES PAIN OR DIFF BREATHING.AFIB RHYTHM
[2020-11-22 04:54] LABS: HEMOGLOBIN 13.4 g/dl (14.0-18.0); MEAN CELL VOLUME 87.7 fL CALC (80.0-100.0); MEAN CORPUSCULAR HGB 29.4 pG CALC (26.0-32.0); MEAN CORPUSCULAR HGB CONC 33.5 g/dL CAL (32.0-36.0); RED BLOOD COUNT 4.56 mill/uL (4.70-6.10); RED CELL DISTRI WIDTH 13.2 % (11.5-15.5)
[2020-11-22 05:11] LABS: ANION GAP 12 (6-22 (CALC)); BUN 22 mg/dL (9-20); BUN/CREATININE RATIO 24 (12-20 (CALC)); CARBON DIOXIDE 25 mmol/l (22-30); CHLORIDE 104 mmol/l (95-108); CREATININE 0.9 mg/dL (0.7-1.3); GFR > 60 ML/MIN (>=60 (CALC)); GFR FOR AFR.AMER. > 60 ML/MIN (>=60 (CALC)); MAGNESIUM 1.9 mg/dL (1.6-2.3); POTASSIUM 4.2 mmol/l (3.5-5.1); SODIUM 137 mmol/l (137-146)
--- NOTE | 2020-11-22 08:16 | NUR ---
PT EATING BREAKFAST IN CHAIR, NO COMPLAINTS, ASSESSMENT COMPLETED. CONTINUOUS CARDIAC MONITORING IN PROGRESS. AFIB ON MONITOR, NO COMPLAINTS AT THIS TIME
[2020-11-22 11:32] VITALS: BP 137/90
[2020-11-22] MEDS ORDERED: XARELTO10 MG PO (12:44)
[2020-11-22] MEDS ORDERED: LOPRESSOR 550 MG/TAB PO (12:48)
[2020-11-22] MEDS ORDERED: AMIODARONE200 MG PO (12:48)
--- NOTE | 2020-11-22 15:40 | NUR ---
Discharged to: Home Discharged via: Wheelchair Accompanied by: family D/C Condition: stable Diet: 2 gm sodium Diet modification: Activity: As tolerated Home Health: NONE Follow up appointment: Special instructions: Medications: SEE MEDICATION RECONCILIATION FORM Prescriptions Given: Please notify your physician if you received either one of these vaccinations: Influenza Vaccine - Date: Pneumococcal Vaccine - Date: Patient Education Materials Provided: - Food and Drug Interaction Guide - Anticoagulation Education Booklet Contains the following information: 1. Compliance issues 2. Dietary advice 3. Follow up monitoring 4. Potential for adverse drug reactions and interactions - Smoking Cessation Booklet IF SYMPTOMS WORSEN, OR IF YOU HAVE ADDITIONAL QUESTIONS, PLEASE CONTACT YOUR PERSONAL PHYSICIAN OR SEEK EMERGENCY CARE. CALL YOUR PHYSICIAN IF YOU DO NOT GET RELIEF FROM THE PAIN MEDICATIONS PRESCRIBED, OR IF THE INTENSITY OF PAIN INCREASES, OR IF PAIN IS INTERFERING WITH ACTIVITY OR REST. IF YOU SMOKE, YOU NEED TO QUIT. IT IS GOOD FOR YOU AND EVERYONE AROUND YOU! Your physician and [facility] care about you and your health. The facts are clear. Smoking causes 1 out of 5 deaths in the [place] each year. It is the major preventable cause of emphysema, lung cancer, chronic bronchitis, heart disease and stroke. Quitting is one of the best things you can ever do for yourself and those you love. What better time to quit than now! You've already been cigarette free during your stay. Studies have shown that the first 48 hours of quitting are the toughest. Just a few of the benefits your body begins to experience are blood pressure returns to normal, the carbon monoxide level in your blood drops to normal, your chance of heart attack decreases, and your ability to smell and taste is enhanced. Here are some resources that you may find helpful: [employer] www.lungusa.org www.cancer.org [employer] [place] [employer] (Tobacco Prevention and Control Program) www.americanheart.org www.annette.[facility].fl.us Finally don't forget that your doctor may be able to help you. Whichever method you choose will be good for you. IF YOU HAVE A DIAGNOSIS OF CONGESTIVE HEART FAILURE, THERE ARE SEVERAL ADDITIONAL INSTRUCTIONS FOR YOU TO FOLLOW UPON DISCHARGE FROM THE HOSPITAL. Weigh yourself every day and if weight gain is greater than 2 pounds in a day, call your physican. If you experience worsening symptoms such as: Problems with breathing or shortness of breath Ankle/foot/leg swelling Unexplained weight gain greater than 2 pounds Call your physician or come to the emergency room. IF YOU HAVE A DIAGNOSIS OF STROKE, THERE ARE SEVERAL ADDITIONAL INSTRUCTIONS FOR YOU TO FOLLOW: A stroke occurs when something happens to interrupt the steady flow of blood to the brain, like a clot or a burst in a blood vessel. Brain cells quickly begin to . These INCREASE your chance of having a STROKE: * Smoking * High blood pressure * Diabetes * Obesity WARNING SIGNS OR SYMPTOMS: * Sudden weakness on one side of body. * Sudden confusion, trouble speaking or understanding. * Sudden trouble seeing. * Sudden trouble walking or loss of balance. * Sudden severe headache with no known cause. CALL At Any Sign of Stroke. You can beat a stroke. Disabilities can be prevented or limited, but you have must go to the Emergency Department immediately. Go in an Ambulance. Save Time. Be Seen Faster! If you were admitted to the hospital for a stroke After DISCHARGE you must: * Keep ALL follow up appointments. * Take your medications as ordered by your doctor. * Do not take any other drugs without checking with your doctor first. * Do not drive unless your doctor says it is okay. * Call your doctor with any questions or concerns. IF YOU WERE DISCHARGED ON COUMADIN/WARFARIN ANTICOAGULATION THERAPY, THERE ARE SEVERAL ADDITIONAL INSTRUCTIONS FOR YOU TO FOLLOW: Anticoagulants are medications that help prevent blood clots. They are often prescribed for people with certain heart, lung and blood vessel diseases to help prevent heart attacks and strokes. IMPORTANT Anticoagulation medications have been used for many years, but it can be difficult to manage. That's because many factors can affect how they work-including small changes in dose or dose timing, what you eat or drink, other medications and stress. You and your doctor must work closely together to manage this important medication. * Take your medicine EXACTLY as instructed by your doctor. * You must have your blood drawn for PT/INR to monitor your medication. * Do not take any new medications, vitamins or herbal supplements without asking your doctor first. FOODS: * Eat the same amount of foods that contain Vitamin K every day. * Avoid or limit alcohol. * Avoid major changes in diet or notify your doctor first. FOLLOW UP MONITORING: See your physician within one week to monitor your condition. You will need to have blood tests performed to monitor the medication. DRUG INTERACTIONS: * Diet and medications can affect the PT/INR level. * Do not take or discontinue any medication or over the counter medication unless your doctor okays. * Warfarin/Coumadin increases the risk of bleeding. CALL YOUR PHYSICIAN IF: If you notice any signs of increased bleedin. Excessive bruising. 2. Abnormal bleeding from nose or gums. 3. [place], red or dark brown urine. 4. Minor bleeding or bright red blood from the bowel. CALL 911 OR GO TO THE HOSPITAL IF: 1. You have black tarry stools. 2. Sudden dizziness, faintness or weakness. 3. Cold or numbness in arm or leg. 4. Sudden chest pain. 5. Trouble talking or moving one side of body. 6. Coughing or vomiting bright red blood. 7. Severe headache or stomach pain. 8. Serious fall or hit to the head. Visit our website at [email or web address] You are going home today. Depending on your insurance coverage, you may be receiving a bill from the hospital for your hospital stay. If you have any question about your bill, please call the Business Office at [phone] or contact us at our web address: [email or web address]. If applicable, I have received my medication information as recommeded by my provider upon discharge. I have read and understand the above discharge instructions. Pt Signature: Date: Time: Witnessed by: Date: Time: Complete the record of communication to the next provider below. These discharge instructions, including discharge medications, is to be faxed to the next provider at the time of the patient's discharge. ____These instructions faxed to next Provider (Provider Name) on (Date) @ (Time) . ____The second provider involved in patient care following discharge has been faxed this information. These instructions faxed to (Provider-Home Health, Physical Therapy, Agency) on (Date) @ (Time) . OR ____Patient unable/unwilling to verbalize who the next provider of care will be, instructed patient to take these instructions to next appointment with healthcare provider.
--- NOTE | 2020-11-22 16:15 | NUR ---
Discharge instructions given. Patient verbalizes understanding of same. Discharged in stable condition via Wheelchair to Home with family. All belongings sent with pt.
== END 2020-11-22 16:15 | disposition home or self-care (01) | DRG 310 ==
LOC: ED 02:44 → ED-I 06:07 → MS2 11-16 22:40 → ED-I 11-18 09:58
PROVIDERS: Internal Medicine; Nurse Practitioner; Nurse Practitioner Family; ADMIT Hospitalist; ATTEND Hospitalist
DX: I48.0 Paroxysmal atrial fibrillation (principal); J20.9 Acute bronchitis, unspecified; I10 Essential (primary) hypertension; E11.9 Type 2 diabetes mellitus without complications; E78.5 Hyperlipidemia, unspecified; F17.210 Nicotine dependence, cigarettes, uncomplicated; Z79.84 Long term (current) use of oral hypoglycemic drugs
CPT/HCPCS: J0282; J1160; J1650; Q9967

== ENCOUNTER 2022-12-10 18:20 | Emergency (ER) | payer OTHER ==
[2022-12-10] VITALS (9 sets, daily range): BP systolic 155–194; BP diastolic 89–106
[~2022-12-10] VITALS: Ht 165.1 cm; Wt 87.0 kg
[~2022-12-10 18:20] MED LIST changes: +ALLERGY RE50 MCG/ACT NAB; +AMIODARONE200 MG PO; +HYDRALAZINE10 MG PO; +LIPITOR20 M1 PO; +LOPRESSOR 550 MG/TAB PO; +NOVOLIN 70/30 F1 INJ SC; +TELMISARTAN80 MG PO; +XARELTO10 MG PO
[2022-12-10 19:13] LABS: BASO% 0.6 % (0-3); EOS% 2.8 % (0-8); HEMATOCRIT 38.8 % (39.0-50.0); HEMOGLOBIN 12.9 g/dl (14.0-18.0); IMMATURE GRANULOCYTES 0.3 % (0.0-5.0); LYMPH% 20.1 % (15-41); MEAN CELL VOLUME 87.8 fL CALC (80.0-100.0); MEAN CORPUSCULAR HGB 29.2 pG CALC (26.0-32.0); MEAN CORPUSCULAR HGB CONC 33.2 g/dL CAL (32.0-36.0); MONO% 9.6 % (2-13); NEUT# 4.6 thou/uL (1.82-7.42); NEUT% 66.6 % (42-76); RED BLOOD COUNT 4.42 mill/uL (4.70-6.10); RED CELL DISTRI WIDTH 12.7 % (11.5-15.5)
[2022-12-10 19:18] LABS: ALKALINE PHOSPHATASE 79 u/l (38-126); ANION GAP 16 (6-22 (CALC)); BILIRUBIN, TOTAL 0.5 mg/dL (0.2-1.3); BUN 13 mg/dL (9-20); BUN/CREATININE RATIO 15 (12-20 (CALC)); CARBON DIOXIDE 22 mmol/l (22-30); CHLORIDE 105 mmol/l (95-108); CREATININE 0.9 mg/dL (0.7-1.3); GFR FOR AFR.AMER. > 60 ML/MIN (>=60 (CALC)); GFR OTHER RACES > 60 ML/MIN (>=60 (CALC)); POTASSIUM 4.1 mmol/l (3.5-5.1); SGOT/AST 35 u/l (17-59); SODIUM 139 mmol/l (137-146); TOTAL PROTEIN 7.2 g/dL (6.3-8.2)
[2022-12-10 19:19] LABS: ALBUMIN 4.5 g/dL (3.2-5.0)
[2022-12-10 19:28] LABS: URINE BILIRUBIN - DIPSTICK Negative (NEGATIVE); URINE BLOOD DIPSTICK Negative (NEGATIVE); URINE GLUCOSE - DIPSTICK Negative (NEGATIVE); URINE KETONE Negative (NEGATIVE); URINE LEUK ESTERASE Negative (NEGATIVE); URINE NITRITE - DIPSTICK Negative (Negative); URINE PROTEIN - DIPSTICK 30 mg/dL (NEG-TRACE); URINE SPECIFIC GRAVITY 1.025; URINE UROBILINOGEN - DIPSTICK 0.2 E.U./dL (0.2)
[2022-12-10 19:29] LABS: URINE COLOR Yellow; URINE RBC 0-2 RBC/hpf (0-5); URINE WBC 0-2 WBC/hpf (0-5)
[2022-12-10] MEDS ORDERED: FLEXERIL5 M1 PO (21:05)
== END 2022-12-10 21:16 | disposition home or self-care (01) | DRG 552 ==
LOC: ED 18:20
PROVIDERS: Family Medicine
DX: M54.6 Pain in thoracic spine (principal); I10 Essential (primary) hypertension; E11.9 Type 2 diabetes mellitus without complications; I48.91 Unspecified atrial fibrillation; E78.00 Pure hypercholesterolemia, unspecified; Z79.84 Long term (current) use of oral hypoglycemic drugs

== ENCOUNTER 2024-05-23 00:30 | Emergency (ER) | payer OTHER ==
[~2024-05-23] VITALS: Ht 165.1 cm; Wt 88.5 kg
[~2024-05-23 00:30] MED LIST changes: +FLEXERIL5 M1 PO
[2024-05-23 00:53] LABS: BASO% 0.4 % (0-3); EOS% 2.9 % (0-8); HEMATOCRIT 43.9 % (39.0-50.0); HEMOGLOBIN 14.8 g/dl (14.0-18.0); IMMATURE GRANULOCYTES 0.6 % (0.0-5.0); MEAN CELL VOLUME 90.9 fL CALC (80.0-100.0); MEAN CORPUSCULAR HGB 30.6 pG CALC (26.0-32.0); MEAN CORPUSCULAR HGB CONC 33.7 g/dL CAL (32.0-36.0); MONO% 10.1 % (2-13); NEUT# 5.12 thou/uL (1.82-7.42); RED BLOOD COUNT 4.83 mill/uL (4.70-6.10); RED CELL DISTRI WIDTH 13.3 % (11.5-15.5)
[2024-05-23] MEDS ORDERED: NITROGLYCERIN IN D5W 25 MG/250 ML BTL IV ONE (00:57)
[2024-05-23] MEDS ORDERED: Heparin SODIUM (Porcine) 5,000 UNITS/ML SDV IV ONE (00:57)
[2024-05-23] MEDS ORDERED: ASPIRIN 81 MG/TAB PO ONE (00:57)
[2024-05-23] MEDS ORDERED: NITROGLYCERIN 2% OINT UD 1 GM/PAK TD ONE (01:00)
[2024-05-23] MEDS ORDERED: FUROSEMIDE 40 MG/4 ML SDV IV ONE (01:00)
[2024-05-23] MEDS ORDERED: JANTOVEN5 MG PO (01:05)
[2024-05-23] MEDS ORDERED: ALL DAY ALLG10 MG PO (01:06)
[2024-05-23] MEDS ORDERED: HYDRALAZINE HYD25 MG PO (01:07)
[2024-05-23 01:08] LABS: ALBUMIN 4.4 g/dL (3.2-5.0); ALKALINE PHOSPHATASE 75 u/l (38-126); ANION GAP 12 (6-22 (CALC)); BILIRUBIN, TOTAL 0.5 mg/dL (0.2-1.3); BUN 19 mg/dL (9-20); BUN/CREATININE RATIO 18 (12-20 (CALC)); CARBON DIOXIDE 27 mmol/l (22-30); CHLORIDE 104 mmol/l (95-108); ESTIMATED GFR 86 ML/MIN (>=90 (CALC)); POTASSIUM 4.6 mmol/l (3.5-5.1); SGOT/AST 31 u/l (17-59); SODIUM 139 mmol/l (137-146); TOTAL PROTEIN 7.3 g/dL (6.3-8.2)
[2024-05-23] MEDS ORDERED: GLIPIZIDE5 M2 PO (01:10)
[2024-05-23] MEDS ORDERED: FLECAINIDE50 MG PO (01:12)
[2024-05-23 01:13] LABS: D-DIMER 0.14 mg/L (0.19-0.60); INTERNATIONAL NORMALIZED RATIO 3.9 RATIO (0.7-1.3); PROTHROMBIN TIME 38.6 SECONDS (9.0-12.5)
[2024-05-23 01:18] LABS: ACT PARTIAL THROMBO TIME 43.6 SECONDS (20.0-32.5)
[2024-05-23] MEDS ORDERED: METOPROLOL TARTRATE 5 MG/5 ML VIAL IV ONE (01:20)
[2024-05-23 02:24] VITALS: BP 134/92
== END 2024-05-23 02:30 | disposition short-term general hospital (02) | DRG 309 ==
LOC: ED 00:30
PROVIDERS: Family Medicine
DX: I48.91 Unspecified atrial fibrillation (principal); I20.0 Unstable angina; I10 Essential (primary) hypertension; E11.9 Type 2 diabetes mellitus without complications; E78.00 Pure hypercholesterolemia, unspecified; Z79.4 Long term (current) use of insulin; Z79.84 Long term (current) use of oral hypoglycemic drugs
CPT/HCPCS: J1644; J1940; J2305